=== PATIENT | female | born 1970 | race African-American/Black ===

== ENCOUNTER 2017-05-20 09:04 | Inpatient (IN) | payer SELFPAY ==
[~2017-05-20] VITALS: Ht 167.6 cm; Wt 80.3 kg
[2017-05-20] MEDS ORDERED: SODIUM CHLORIDE 0.9% 1,000 ML IV ONE (11:26)
[2017-05-20] MEDS ORDERED: FAMOTIDINE 20MG/2ML VIAL IV STA (11:26)
[2017-05-20] MEDS ORDERED: MAGNESIUM/ALUMINUM HYDROXIDE/SIMETHICONE 30ML UDC PO STA (11:26)
[2017-05-20] MEDS ORDERED: ONDANSETRON HCL 4MG/2ML VIAL IV STA (11:26)
[2017-05-20 12:10] LABS: CLARITY URINE CLEAR (CLEAR); COLOR URINE ORANGE (YELLOW); GLUCOSE URINE NEGATIVE (NEGATIVE); KETONES URINE NEGATIVE (NEGATIVE); LEUKOCYTE ESTERASE URINE TRACE (NEGATIVE); NITRITE URINE NEGATIVE (NEGATIVE); OCCULT BLOOD URINE 3+ (NEGATIVE); PH URINE 7.5 (4.5-8.0); PROTEIN URINE 2+ (NEGATIVE); SPECIFIC GRAVITY URINE 1.014 (1.005-1.030); UROBILINOGEN URINE 0.2 E.U./dL (0.2-1.0)
[2017-05-20 12:13] LABS: BASOPHILS % 0.8 % (0.0-2.0); EOSINOPHILS % 0.6 % (0.0-5.0); INR 1.1; LYMPHOCYTES % 29.3 % (20.0-50.0); MEAN CORPUSCULAR HEMOGLOBIN 19.9 pg (28.0-32.0); MEAN PLATELET VOLUME 9.5 fl (7.4-10.4); MONOCYTES % 7.4 % (2.0-8.0); NEUTROPHILS % 61.9 % (40.0-76.0); PLATELET 280 x1000/uL (130-400); RED BLOOD CELL COUNT 2.12 mill/uL (4.2-5.4); RED CELL DISTRIBUTION WIDTH 25.1 % (11.6-14.6)
[2017-05-20 12:21] LABS: CARBON DIOXIDE 26 mEq/L (21-32); CHLORIDE 107 mEq/L (98-107); HEMATOCRIT. 14.4 % (36.0-48.0); HEMOGLOBIN. 4.2 g/dL (12.0-16.0)
[2017-05-20 12:37] LABS: PLATELET ESTIMATE NORMAL
[2017-05-20 15:30] VITALS: BP 116/73
[2017-05-20] MEDS ORDERED: MULT-1146 PO (17:07)
[2017-05-20] MEDS ORDERED: ONDANSETRON HCL 4MG/2ML VIAL IV PRN (18:15)
[2017-05-20] MEDS ORDERED: ACETAMINOPHEN 325MG TABLET PO PRN (18:15)
[2017-05-20] MEDS ORDERED: MORPHINE SULFATE 4 MG/ML CPJ (NOT FOR IM USE) IV PRN (19:45)
[2017-05-20 20:00] VITALS: BP 172/85
[2017-05-20] MEDS ORDERED: ZOLPIDEM TARTRATE 5MG TABLET PO PRN (21:00)
[2017-05-20 23:07] VITALS: BP 114/66
[2017-05-20 23:24] VITALS: BP 116/60
[2017-05-21] VITALS (7 sets, daily range): BP systolic 101–130; BP diastolic 61–83
[2017-05-21] MEDS ORDERED: MULTIVITAMINS,THER W-MINERALS TABLET PO SCH (09:00)
[2017-05-21] MEDS ORDERED: MEDICATION NOT ON FORMULARY EA (Multivitamin (Multi Vitamin Daily) 1 TAB) PO SCH (09:00)
[2017-05-21 10:17] LABS: BASOPHILS % 0.7 % (0.0-2.0); EOSINOPHILS % 0.6 % (0.0-5.0); HEMATOCRIT. 23.6 % (36.0-48.0); HEMOGLOBIN. 7.6 g/dL (12.0-16.0); LYMPHOCYTES % 22.8 % (20.0-50.0); MEAN CORPUSCULAR VOLUME 77.1 fL (81.0-99.0); MONOCYTES % 8.5 % (2.0-8.0); NEUTROPHILS % 67.4 % (40.0-76.0); PLATELET 315 x1000/uL (130-400); RED BLOOD CELL COUNT 3.06 mill/uL (4.2-5.4); RED CELL DISTRIBUTION WIDTH 25.9 % (11.6-14.6)
[2017-05-21 10:42] LABS: HCG SCREEN NEGATIVE
[2017-05-21 10:44] LABS: CARBON DIOXIDE 26 mEq/L (21-32); CHLORIDE 104 mEq/L (98-107); TOTAL IRON BINDING CAPACITY 450 ug/dL (250-450)
== END 2017-05-21 13:30 | disposition home or self-care (01) | DRG 532 ==
LOC: ER 09:04 → EDBEDREQ 12:52 → ENRESERV 13:22 → 6EST 14:11 → EDBEDREQ 14:13
PROVIDERS: ADMIT Family Medicine Adult Medicine; ATTEND Family Medicine Adult Medicine
PROC: 30233N1 Transfusion of Nonautologous Red Blood Cells into Peripheral Vein, Percutaneous Approach (ICD-10-PCS; principal; 2017-05-20)
DX: D25.9 Leiomyoma of uterus, unspecified (principal); D64.9 Anemia, unspecified; Z79.899 Other long term (current) drug therapy
CPT/HCPCS: 36415; 76856; 80048; 80053; 81001; 83540; 83550; 83690; 84703; 85025; 85610; 86850; 86900; 86920; 99285; J2270; J2405; J3490; J7030; J7040; P9016

== ENCOUNTER 2017-06-07 23:51 | Emergency (ER) | payer SELFPAY ==
[~2017-06-07] VITALS: Ht 167.6 cm; Wt 73.0 kg
[~2017-06-07 23:51] MED LIST: MULT-1146 PO
[2017-06-08] MEDS ORDERED: ASPIRIN 81MG TABLET PO ONE (00:15)
[2017-06-08 00:23] LABS: BASOPHILS % 0.6 % (0.0-2.0); EOSINOPHILS % 1.5 % (0.0-5.0); HEMOGLOBIN. 9.7 g/dL (12.0-16.0); LYMPHOCYTES % 27.8 % (20.0-50.0); MEAN CORPUSCULAR HEMOGLOBIN 26.2 pg (28.0-32.0); MEAN CORPUSCULAR VOLUME 83.3 fL (81.0-99.0); MEAN PLATELET VOLUME 8.5 fl (7.4-10.4); MONOCYTES % 8.3 % (2.0-8.0); NEUTROPHILS % 61.8 % (40.0-76.0); PLATELET 125 x1000/uL (130-400); RED BLOOD CELL COUNT 3.72 mill/uL (4.2-5.4); RED CELL DISTRIBUTION WIDTH 30.4 % (11.6-14.6)
[2017-06-08 00:33] LABS: D-DIMER 0.84 mg/L FEU (<0.50); PROTHROMBIN TIME 10.9 sec (9.4-11.6)
[2017-06-08 00:35] LABS: HCG SCREEN NEGATIVE
[2017-06-08 00:42] LABS: CARBON DIOXIDE 24 mEq/L (21-32); CHLORIDE 107 mEq/L (98-107); ETHANOL BLOOD < 10 mg/dL; TROPONIN I < 0.02 ng/mL (0.00-0.04)
[2017-06-08] MEDS ORDERED: SODIUM CHLORIDE 0.9% 1,000 ML IV ONE (00:55)
[2017-06-08] MEDS ORDERED: IOHEXOL-350 100 ML BOTTLE ONE (03:17)
[2017-06-08 04:15] VITALS: BP 137/82
== END 2017-06-08 04:19 | disposition home or self-care (01) ==
LOC: ER 23:51
DX: R06.00 Dyspnea, unspecified (principal); F41.9 Anxiety disorder, unspecified; D50.9 Iron deficiency anemia, unspecified; D25.9 Leiomyoma of uterus, unspecified
CPT/HCPCS: 36415; 71010; 71275; 80053; 83880; 84484; 84703; 85025; 85379; 85610; 87804; 93005; 96360; 96361; 99285; G0482; J7030; Q9967; Z7610

== ENCOUNTER 2017-07-25 22:47 | Emergency (ER) | payer MEDICAID ==
[~2017-07-25] VITALS: Ht 170.2 cm; Wt 68.0 kg
[2017-07-26] MEDS ORDERED: SODIUM CHLORIDE 0.9% 1,000 ML IV ONE (01:28)
[2017-07-26] MEDS ORDERED: MORPHINE SULFATE 4 MG/ML CPJ (NOT FOR IM USE) IV STA (01:28)
[2017-07-26] MEDS ORDERED: ONDANSETRON HCL 4MG/2ML VIAL IV STA (01:28)
[2017-07-26 01:50] LABS: BASOPHILS % 0.3 % (0.0-2.0); EOSINOPHILS % 2.8 % (0.0-5.0); HEMATOCRIT. 22.9 % (36.0-48.0); HEMOGLOBIN. 7.2 g/dL (12.0-16.0); MEAN CORPUSCULAR HEMOGLOBIN 24.2 pg (28.0-32.0); MEAN CORPUSCULAR VOLUME 76.8 fL (81.0-99.0); MEAN PLATELET VOLUME 7.7 fl (7.4-10.4); MONOCYTES % 14.2 % (2.0-8.0); NEUTROPHILS % 66.7 % (40.0-76.0); PLATELET 165 x1000/uL (130-400); RED BLOOD CELL COUNT 2.98 mill/uL (4.2-5.4); RED CELL DISTRIBUTION WIDTH 22.7 % (11.6-14.6)
[2017-07-26 01:53] LABS: CLARITY URINE TURBID (CLEAR); COLOR URINE YELLOW (YELLOW); KETONES URINE NEGATIVE (NEGATIVE); LEUKOCYTE ESTERASE URINE NEGATIVE (NEGATIVE); NITRITE URINE NEGATIVE (NEGATIVE); OCCULT BLOOD URINE NEGATIVE (NEGATIVE); PH URINE 8.5 (4.5-8.0); PROTEIN URINE NEGATIVE (NEGATIVE); SPECIFIC GRAVITY URINE 1.015 (1.005-1.030); UROBILINOGEN URINE 0.2 E.U./dL (0.2-1.0)
[2017-07-26 01:57] LABS: INR 1.1; PROTHROMBIN TIME 11.1 sec (9.4-11.6)
[2017-07-26 02:00] LABS: CHLORIDE 105 mEq/L (98-107)
[2017-07-26 02:03] LABS: HCG SCREEN NEGATIVE
[2017-07-26 02:07] LABS: CARBON DIOXIDE 27 mEq/L (21-32)
[2017-07-26 08:05] VITALS: BP 112/66
== END 2017-07-26 08:33 | disposition home or self-care (01) ==
LOC: ER 22:56
DX: D25.9 Leiomyoma of uterus, unspecified (principal); D64.9 Anemia, unspecified; R10.84 Generalized abdominal pain; R19.7 Diarrhea, unspecified
CPT/HCPCS: 36415; 76856; 80053; 81001; 84703; 85025; 85610; 86850; 86900; 86901; 93005; 96361; 96374; 96375; 99285; J2270; J2405; J7030

== ENCOUNTER 2020-11-01 10:56 | Emergency (ER) | payer MEDICAID ==
[~2020-11-01] VITALS: Ht 167.6 cm; Wt 74.0 kg
[2020-11-01 11:14] VITALS: BP 144/85
[2020-11-01] MEDS ORDERED: SODIUM CHLORIDE 0.9% 1,000 ML IV ONE (11:45)
[2020-11-01 11:53] LABS: CHLORIDE 107 mEq/L (98-107)
[2020-11-01 12:02] LABS: EOSINOPHILS % 1.9 % (0.0-5.0); HCG SCREEN NEGATIVE; HEMATOCRIT. 27.1 % (36.0-48.0); LYMPHOCYTES % 43.5 % (20.0-50.0); MEAN CORPUSCULAR HEMOGLOBIN 27.8 pg (28.0-32.0); MEAN CORPUSCULAR VOLUME 83.6 fL (81.0-99.0); MONOCYTES % 8.6 % (2.0-8.0); PLATELET 177 x1000/uL (130-400); RED BLOOD CELL COUNT 3.24 mill/uL (4.2-5.4); RED CELL DISTRIBUTION WIDTH 18.6 % (11.6-14.6)
[2020-11-01] MEDS ORDERED: IBUP-2030 PO (13:07)
== END 2020-11-01 14:52 | disposition home or self-care (01) ==
LOC: ER 11:12
DX: D25.9 Leiomyoma of uterus, unspecified (principal); D64.9 Anemia, unspecified
CPT/HCPCS: 36415; 76856; 80053; 84703; 85025; 86850; 86900; 86901; 96360; 99284; J7030

== ENCOUNTER 2022-04-27 15:52 | Inpatient (IN) | payer MEDICAID, OTHER ==
[~2022-04-27] VITALS: Ht 167.6 cm; Wt 84.5 kg
[~2022-04-27 15:52] MED LIST changes: +IBUP-2030 PO
[2022-04-27 16:17] LABS: BASOPHILS % 0.6 % (0.0-2.0); EOSINOPHILS % 1.1 % (0.0-5.0); HEMATOCRIT. 39.4 % (36.0-48.0); HEMOGLOBIN. 13.5 g/dL (12.0-16.0); LYMPHOCYTES % 34.8 % (20.0-50.0); MEAN CORPUSCULAR HEMOGLOBIN 31.1 pg (28.0-32.0); MEAN PLATELET VOLUME 9.3 fl (7.4-10.4); MONOCYTES % 8.8 % (2.0-8.0); NEUTROPHILS % 54.7 % (40.0-76.0); PLATELET 155 x1000/uL (130-400); RED BLOOD CELL COUNT 4.33 mill/uL (4.2-5.4); RED CELL DISTRIBUTION WIDTH 14.8 % (11.6-14.6)
[2022-04-27 16:20] LABS: CHLORIDE 107 mEq/L (98-107)
[2022-04-27] MEDS ORDERED: ONDANSETRON HCL 4MG/2ML INJ IV ONE (16:30)
[2022-04-27] MEDS ORDERED: IOHEXOL-350 100 ML BOTTLE ONE (17:52)
[2022-04-27] MEDS ORDERED: HYDRALAZINE 20MG/ML VIAL IV ONE (18:30)
[2022-04-27 22:00] VITALS: BP 177/111
[2022-04-27] MEDS ORDERED: METO-385 PO (22:20)
[2022-04-27] MEDS ORDERED: HYDROCODONE/ACETAMINOPHEN 5/325MG TABLET PO PRN (23:00)
[2022-04-27] MEDS ORDERED: NITROGLYCERIN 0.4MG TABLET SL SL PRN (23:00)
[2022-04-27] MEDS ORDERED: CLONIDINE 0.1MG TABLET PO PRN (23:00)
[2022-04-27] MEDS ORDERED: TRAMADOL 50MG TABLET PO PRN (23:45)
[2022-04-27] MEDS ORDERED: NALOXONE HCL 0.4MG/ML VIAL IV PRN (23:45)
[2022-04-28] VITALS: BP 153/101
[2022-04-28] MEDS: ACETAMINOPHEN 325MG TABLET PO PRN ×2 (02:19→10:20)
[2022-04-28 02:44] LABS: CLARITY URINE CLEAR (CLEAR); COLOR URINE YELLOW (YELLOW); KETONES URINE NEGATIVE (NEGATIVE); LEUKOCYTE ESTERASE URINE NEGATIVE (NEGATIVE); NITRITE URINE NEGATIVE (NEGATIVE); OCCULT BLOOD URINE 1+ (NEGATIVE); PROTEIN URINE NEGATIVE (NEGATIVE); SPECIFIC GRAVITY URINE 1.035 (1.005-1.030); UROBILINOGEN URINE 0.2 E.U./dL (0.2-1.0)
[2022-04-28 04:00] VITALS: BP 148/99
[2022-04-28 07:42] LABS: BASOPHILS % 0.5 % (0.0-2.0); EOSINOPHILS % 1.8 % (0.0-5.0); HEMATOCRIT. 38.5 % (36.0-48.0); HEMOGLOBIN. 13.6 g/dL (12.0-16.0); LYMPHOCYTES % 40.4 % (20.0-50.0); MEAN CORPUSCULAR HEMOGLOBIN 31.8 pg (28.0-32.0); MEAN CORPUSCULAR VOLUME 90.2 fL (81.0-99.0); MEAN PLATELET VOLUME 9.3 fl (7.4-10.4); MONOCYTES % 9.4 % (2.0-8.0); NEUTROPHILS % 47.9 % (40.0-76.0); PLATELET 154 x1000/uL (130-400); RED BLOOD CELL COUNT 4.26 mill/uL (4.2-5.4); RED CELL DISTRIBUTION WIDTH 14.3 % (11.6-14.6)
[2022-04-28 07:49] LABS: CHLORIDE 104 mEq/L (98-107)
[2022-04-28 08:06] VITALS: BP 142/99
[2022-04-28 08:06] LABS: HDL CHOLESTEROL 52 mg/dL (40-59); LDL CHOLESTEROL 113 mg/dL (5-100)
[2022-04-28] MEDS ORDERED: METOPROLOL SUCCINATE 50MG ER TABLET PO SCH (09:00)
[2022-04-28] MEDS: AMLODIPINE 10MG TABLET PO SCH (09:44)
[2022-04-28] MEDS: ATORVASTATIN CALCIUM 40MG TABLET PO SCH (09:44)
[2022-04-28] MEDS: METOPROLOL TARTRATE 50MG TABLET PO SCH ×2 (09:45→21:37)
[2022-04-28] MEDS: ASPIRIN 81MG TABLET PO SCH (09:45)
[2022-04-28] MEDS: ENOXAPARIN 40MG/0.4ML SYR SUBCUT SCH (09:46)
[2022-04-28] MEDS ORDERED: DIPHENHYDRAMINE 25MG CAPSULE PO NR (10:15)
[2022-04-28 11:44] LABS: CREATINE KINASE 121 IU/L (26-192); CREATINE KINASE MB FRACTION < 1.0 ng/mL (0.5-3.6)
[2022-04-28 16:00] VITALS: BP 151/99
[2022-04-28 20:00] VITALS: BP 155/94
[2022-04-28] MEDS ORDERED: TRAZODONE HCL 50MG TABLET PO SCH (21:00)
[2022-04-28] MEDS ORDERED: DIPHENHYDRAMINE 50MG CAPSULE PO PRN (21:15)
[2022-04-29 05:42] VITALS: BP 125/84
[2022-04-29 07:58] VITALS: BP 144/98
[2022-04-29] MEDS: AMLODIPINE 10MG TABLET PO SCH (08:42)
[2022-04-29] MEDS: METOPROLOL TARTRATE 50MG TABLET PO SCH ×2 (08:43→08:57)
[2022-04-29] MEDS: ATORVASTATIN CALCIUM 40MG TABLET PO SCH (08:43)
[2022-04-29] MEDS: ASPIRIN 81MG TABLET PO SCH (08:43)
[2022-04-29] MEDS: ENOXAPARIN 40MG/0.4ML SYR SUBCUT SCH (08:44)
[2022-04-29 12:00] VITALS: BP 128/87
[2022-04-29] MEDS ORDERED: METO-385 PO (14:46)
[2022-04-29] MEDS ORDERED: AMLO10TA80 PO (14:46)
[2022-04-29 16:00] VITALS: BP 142/92
[2022-04-29 18:21] VITALS: BP 142/92
== END 2022-04-29 19:00 | disposition home or self-care (01) | DRG 54 ==
LOC: ER 15:52 → 8WST 18:56 → ENRESERV 20:08
PROVIDERS: ADMIT Internal Medicine; ATTEND Internal Medicine
DX: G44.209 Tension-type headache, unspecified, not intractable (principal); G47.00 Insomnia, unspecified; I10 Essential (primary) hypertension; R07.9 Chest pain, unspecified; Z20.822 Contact with and (suspected) exposure to COVID-19; Z82.49 Family history of ischemic heart disease and other diseases of the circulatory system; Z83.3 Family history of diabetes mellitus
CPT/HCPCS: 36415; 70496; 70498; 71045; 71275; 80048; 80053; 80061; 81003; 82550; 82553; 82962; 83880; 84484; 85025; 87426; 93005; 99285; C9803; J0360; J1650; J2405; Q0163; Q9967